=== PATIENT | female | born 1980 | race Caucasian/White ===

== ENCOUNTER 2020-09-02 22:31 | Emergency (ER) | payer OTHER ==
[~2020-09-02] VITALS: Ht 165.1 cm; Wt 100.0 kg
[2020-09-02 23:25] LABS: BARBITURATES NEG (NEG); BENZODIAZEPINES NEG (NEG); CANNABINOIDS NEG (NEG); COCAINE NEG (NEG); METHADONE NEG (NEG); OPIATES NEG (NEG); PHENCYCLIDINE NEG (NEG)
[2020-09-02 23:28] LABS: AMPHETAMINE/METHAMPHETAMINE NEG (NEG)
[2020-09-02 23:30] LABS: BASO # 0.1 x10^3/uL (0.0-0.2); BASO % 1 % (0-3); EOS # 0.2 x10^3/uL (0.0-0.7); EOS % 2 % (0-3); HEMATOCRIT 37.3 % (36.0-47.0); LYMPH # 1.8 x10^3/uL (1.0-4.8); LYMPH % 19 % (24-48); MEAN CORPUSCULAR HEMOGLOBIN 32 pg (25-35); MEAN CORPUSCULAR HGB CONC 35 g/dL (31-37); MEAN CORPUSCULAR VOLUME 92 fL (79-100); MONO # 0.8 x10^3/uL (0.0-1.1); MONO % 8 % (0-9); NEUT # 6.6 x10^3/uL (1.8-7.7); NEUT % 70 % (31-73); PLATELET COUNT 275 x10^3/uL (140-400); RED BLOOD COUNT 4.05 x10^6/uL (3.50-5.40); RED CELL DISTRIBUTION WIDTH 12.6 % (11.5-14.5); WHITE BLOOD COUNT 9.4 x10^3/uL (4.0-11.0)
[2020-09-02] MEDS ORDERED: fentaNYL PF VIAL 100 MCG/2 ML VIAL IVP ONE (23:30)
[2020-09-02 23:38] LABS: CALCIUM 8.5 mg/dL (8.5-10.1); CREATININE 0.8 mg/dL (0.6-1.0); POTASSIUM 3.5 mmol/L (3.5-5.1)
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
[2020-09-03] MEDS ORDERED: CONTRAST GIVEN. MC PRN (00:45)
[2020-09-03] MEDS ORDERED: IOHEXOL 300 MG/ML 100ML VIAL. IV ONE (00:45)
[2020-09-03] MEDS ORDERED: KETOROLAC 15 MG/ML VIAL. IVP ONE (01:15)
[2020-09-03 01:30] VITALS: BP 132/68
[2020-09-03] MEDS ORDERED: IOHEXOL 300 MG/ML 100ML VIAL. ONE (05:41)
== END 2020-09-03 01:45 | disposition short-term general hospital (02) ==
LOC: EEVIPCON 22:31 → ER 22:31
DX: R04.0 Epistaxis (principal); R22.0 Localized swelling, mass and lump, head; F10.129 Alcohol abuse with intoxication, unspecified; Y90.6 Blood alcohol level of 120-199 mg/100 ml; R51.9 Headache, unspecified; G89.11 Acute pain due to trauma; M47.812 Spondylosis without myelopathy or radiculopathy, cervical region; F17.200 Nicotine dependence, unspecified, uncomplicated; Z88.0 Allergy status to penicillin; Y08.89XA Assault by other specified means, initial encounter; Y93.89 Activity, other specified; Y92.89 Other specified places as the place of occurrence of the external cause; Y99.8 Other external cause status
CPT/HCPCS: 36415; 70450; 70486; 70496; 70498; 72125; 80048; 80307; 81025; 85025; 96374; 96375; 99285; G0480; J1885; J3010; Q9967